=== PATIENT | male | born 1955 | race African-American/Black ===

== ENCOUNTER 2018-12-16 20:26 | Emergency (ER) | payer OTHER ==
[~2018-12-16] VITALS: Ht 162.6 cm; Wt 72.6 kg
[~2018-12-16 20:26] MED LIST: BLOOD PRESSURE MED; ERYTHROMYCIN E3.5 G1 OPHTHALMIC; KEFLEX500 MG PO; LISINOPRIL5 MG PO; NAPROSYN500 MG PO; NOHOMEMEDICATIONS; NORCO 5-325 TA1 EACH PO; PERCOCET 5-3251 EACH PO; SEIZURE MED
[2018-12-16 21:28] LABS: ABSOLUTE NEUTROPHILS 4.1 thou/uL (1.4-8.2); EOSINOPHILS 2.1 % (0.0-3.0); HEMATOCRIT 44.1 % (42.0-52.0); LYMPHOCYTES 33.4 % (24.0-44.0); MCH 29.8 pg (26.0-34.0); MCV 87.6 fL (80.0-100.0); MONOCYTES 8.1 % (1.0-8.0); PLATELET COUNT 232 thou/uL (150-400); POLYS 55.4 % (36.0-66.0); RBC 5.04 mil/uL (4.50-6.00); RDW 15.3 % (10.5-14.5); WBC 7.3 thou/uL (4.0-11.0)
[2018-12-16 21:32] LABS: URINE BILIRUBIN NEGATIVE (Negative); URINE BLOOD TRACE (Negative); URINE CLARITY CLEAR; URINE COLOR YELLOW; URINE GLUCOSE-RANDOM* NEGATIVE (Negative); URINE KETONES NEGATIVE (Negative); URINE LEUKOCYTES-REFLEX NEGATIVE (Negative); URINE NITRITE-REFLEX NEGATIVE (Negative); URINE PROTEIN (DIPSTICK) NEGATIVE (Negative); URINE UROBILINOGEN 0.2 E.U./dl (0.2-1.0)
[2018-12-16 21:37] LABS: CALCIUM 8.9 mg/dL (8.5-10.1); CREATININE 1.5 mg/dL (0.7-1.3); POTASSIUM 3.9 mmol/L (3.5-5.1)
[2018-12-16 21:43] LABS: ALBUMIN 3.6 g/dL (3.4-5.0); TOTAL BILIRUBIN 0.3 mg/dL (<0.1-1.0); TOTAL PROTEIN 7.6 g/dL (6.4-8.2)
[2018-12-16] MEDS ORDERED: ROBAXIN500 MG PO (23:25)
[2018-12-16] MEDS ORDERED: BENTYL 20 MG TA20 M1 PO (23:25)
[2018-12-16 23:45] VITALS: BP 172/93
--- NOTE | 2018-12-17 16:07 | EKG ---
[address] [place] [address] ELECTROCARDIOGRAM REPORT Name: CAROLEHARSHAD Room #: EDGARD Brewster#: [id number] ������������������ Admission: 12/16/18 ������������������ Attend Phys: Discharge: 12/17/18 ������������������ Date of : 55 Report #: [id number] ����������������������������������������������������������������� [id number] THIS REPORT FOR: //name// [facility] ED Test Date: 2018-12-16 Test Time: 21:10:46 Pat Name: [facility] Department: Room: Gender: [employer]: brent weems : 1955 Requested By: Sp Lindsey Order Number: [id number] MD: Dre Hendrickson Measurements Intervals Walters Rate: 85 P: 60 DC: 169 QRS: -51 QRSD: 81 T: 85 QT: 353 QTc: 420 Interpretive Statements Sinus rhythm Leftward axis Borderline T wave abnormalities No previous ECG available for comparison Electronically Signed On 12-17-2018 16:06:52 CDT by Dre Hendrickson [email or web address] ��������������������������������������������� <ELECTRONICALLY SIGNED> ���������������������������������������� By: Dre Hendrickson MD, [facility] ��������������������������������������������� 12/17/18 1606 2110 09 Dre Hendrickson MD, FACC /EPI
== END 2018-12-17 00:18 | disposition home or self-care (01) ==
LOC: ER 20:26
PROVIDERS: Emergency Medicine
DX: R19.7 Diarrhea, unspecified (principal); M54.2 Cervicalgia; I10 Essential (primary) hypertension; Z88.6 Allergy status to analgesic agent